=== PATIENT | male | born 1945 | race Caucasian/White ===

== ENCOUNTER → 2018-04-20 | Outpatient (CLI) | payer MEDICARE ==
--- NOTE | 2018-04-21 17:32 | CARDNUC ---
[place] [address] CARDIAC NUCLEAR IMAGING REPORT Name: TELLOGRISELDATALISHA PARADA Room: [facility]#: [id number] Admission: 04/20/18 Attend Phys: Kleber Deluna, Discharge: Date of : 45 Date of Service: 04/21/18 1732 Report #: [id number] THIS REPORT FOR: //name// APPROVED REPORT Imaging Protocol: Rest Tc-99m/Stress Tc-99m 1 day Study performed: 04/20/2018 07:15:00 Indication: Chest pain Patient Location: Out-Patient Stress Tech: Kia Avendaño Stress Nurse: Yvonne Sevilla RN NM Tech:FLOYD Voss Ht: 5 ft 4 in Wt: 156 lbs BSA: 1.76 m2 BMI: 26.77 Medical History Medical History: HTN, Hyperlipidemia Medications: amlodipine, asa 81, lisinopril, simvastatin, ntg Allergies: No known drug allergies Cardiac Risk Factors: age, hyperlipidemia, hypertension, family hx Previous Cardiac Procedures: none Exercise History: Physically active Resting Data Rest SPECT myocardial perfusion imaging was performed in supine position 30 minutes following the intravenous injection of 10.8 mCi of Tc-99m Sestamibi. Time of rest injection: 739 Date: 04/20/2018 The images were gated to evaluate regional wall motion and calculate left ventricular ejection fraction. Administration Route: IV Administration Site: Right AC Exercise Stress At peak stress, the patient was injected intravenously with 36.0mCi of Tc-99m Sestamibi. Time of stress injection: 909 Administration Route: IV Administration Site: Right AC Gated Stress SPECT was performed 40 [place] [address] CARDIAC NUCLEAR IMAGING REPORT Name: GRISELDA JAVED TAL Room: [facility]#: [id number] Admission: 04/20/18 Attend Phys: Kleber Deluna, Discharge: Date of : 45 Date of Service: 04/21/18 1732 Report #: [id number] The images were gated to evaluate regional wall motion and calculate left ventricular ejection fraction. Prone imaging was performed. Stress Test Details Stress Test: Exercise stress testing was performed using a Ezekiel protocol. HR Max Heart Rate (APMHR): 148 bpm Resting HR: 70 bpm Target HR (85% APMHR): 125 bpm Max HR Achieved: 138 bpm % of APMHR: 93 Recovery HR: 89 bpm BP Resting BP: 145/72 mmHg Max BP: 187/79 mmHg Recovery BP: 178/78 mmHg ECG Resting ECG: Sinus Rhythm Stress ECG: Sinus Tachycardia ST Change: None Arrhythmia: None Recovery ECG: Sinus Rhythm Recovery ST Change: None Recovery Arrhythmia: None Clinical Reason for Termination: Fatigue Patient exhibited limited exercise capacity. He did not have any typical cardiac symptoms with standard Ezekiel protocol exercise. Nurse Comments pt was unable to keep up with treadmill at end Stress ECG Conclusion The baseline 12-lead EKG show sinus rhythm without ST or T wave abnormality. His obtained during and post exercise showed sinus rhythm and sinus tachycardia with no significant ST or T wave changes when compared to baseline. There were no stress-induced arrhythmias. Study Quality Study: Good Artifact: [place] [address] CARDIAC NUCLEAR IMAGING REPORT Name: GRISELDA JAVED Room: [facility]#: [id number] Admission: 04/20/18 Attend Phys: Kleber Deluna, Discharge: Date of : 45 Date of Service: 04/21/18 1732 Report #: [id number] Study Data At rest, the left ventricular ejection fraction was 72%.. Post stress, the left ventricular ejection was 73%.. TID = 1.02. Perfusion Myocardial perfusion images obtained in the supine position at rest and post exercise stress show photopenia in the inferior wall that resolves completely with post stress prone imaging suggesting diaphragmatic attenuation artifact. No other significant fixed or reversible defects were identified. Wall Motion Normal left ventricular wall motion. Nuclear Conclusion ECG Findings: negative for ischemia Clinical Findings: negative for ischemia Nuclear Findings: negative for ischemia Exercise Capacity: limited Left Ventricular Function: normal Risk Study: low Myocardial perfusion images show no defect to suggest infarct or ischemia. Left ventricular systolic function appears normal on gated studies. This is a low risk study. <Conclusion> The baseline 12-lead EKG show sinus rhythm without ST or T wave abnormality. His obtained during and post exercise showed sinus rhythm and sinus tachycardia with no significant ST or T wave changes when compared to baseline. There were no stress-induced arrhythmias. <ELECTRONICALLY SIGNED> By: Ryan Palmer MD, [facility] 04/21/18 1732 [id number] Ryan Palmer MD, FACC /INF
== END ==
LOC: M.NUC 04-10 13:04
DX: R07.2 Precordial pain (principal); R05 Cough; I10 Essential (primary) hypertension; E78.5 Hyperlipidemia, unspecified; Z98.890 Other specified postprocedural states

== ENCOUNTER 2018-06-14 10:21 | Observation (INO) | payer MEDICARE ==
[~2018-06-14] VITALS: Ht 165.1 cm; Wt 69.4 kg
--- NOTE | ~2018-06-14 | D ---
[address] [address] DISCHARGE SUMMARY Name: GRISELDA JAVED Room: [address] Dieudonne Winkler#: [id number] Admission: 06/14/18 Attend Phys: Kleber Deluna MD Discharge: 06/15/18 Date of : 45 Report #: [id number] THIS REPORT FOR: //name// CC: Scott Guevara DATE OF SERVICE: 06/15/2018 FINAL DIAGNOSES: 1. Unstable angina. 2. Status post percutaneous coronary intervention to the ostium of his right coronary artery and mid right coronary artery, 70 and 95% stenoses respectively. 3. Normal left ventricular function. 4. Hyperlipidemia. HOSPITAL SUMMARY: The patient had been having unstable angina and was arranged for an outpatient cardiac catheterization, which revealed a 60-70% highly calcified ostial right coronary artery stenosis and a 95% mid body RCA stenosis, which is a dominant vessel. He had moderate disease in his left system and normal LV function. His vessels were highly calcified and his right coronary intervention was complex and required several balloon dilations to open up his mid right coronary artery and ultimately required stenting of his ostial right coronary artery. His troponin post-procedural was 15, creatinine was normal. CBC was normal. The residual stenosis in the mid right coronary artery is in the 10-20% range. There was 0% residual stenosis in the ostium of the right coronary artery. DISCHARGE MEDICATIONS: Will include aspirin, Brilinta, atorvastatin 40 mg daily and his other home medications will remain unchanged. FOLLOWUP: Will be with nurse practitioner in 2-3 weeks. By: [id number] Deluna MD, FACC /nt
[~2018-06-14 10:21] MED LIST: ASPIR 8181 MG PO; COZAAR 25 MG TA25 M1 PO; FINASTERIDE5 MG PO; FLOMAX0.4 MG PO; FLONASE 0.05%50 MCG NASAL; IMDUR 30 MG TAB30 M1 PO; LIORESAL 10 MG10 MG PO; NORVASC5 MG PO; OMEPRAZOLE40 MG PO; SENNA8.6 MG PO; SIMVASTATIN40 MG PO; THERA-M1 EAC1 PO; TRAMADOL 50 MG50 MG PO; TYLENOL EXTRA500 MG PO; VITAMIN D1000 UNI1 PO; VITAMINC500 PO; ZYRTEC10 M5 PO
[2018-06-14 11:27] VITALS: BP 117/75
[2018-06-14 11:32] LABS: HEMATOCRIT 39.2 % (42.0-52.0); HEMOGLOBIN 13.4 gm/dL (14.0-18.0); MCH 29.6 pg (26.0-34.0); MCHC 34.2 g/dL (28.0-37.0); MCV 86.8 fL (80.0-100.0); MPV 7.2 fl. (7.2-11.1); RBC 4.51 mil/uL (4.50-6.00); RDW-CV 14.7 % (10.5-14.5); WBC 3.9 thou/uL (4.0-11.0)
[2018-06-14 11:38] LABS: APTT 25.2 Seconds (25.0-31.3); PROTIME 10.1 Seconds (9.20-11.50)
[2018-06-14 11:42] LABS: ANION GAP 11 mmol/L (7-16); BUN 8 mg/dL (7-18); CHLORIDE 101 mmol/L (98-107); CHOLESTEROL 175 mg/dL (<200); CO2 26 mmol/L (21-32); CREATININE 0.8 mg/dL (0.6-1.3); GLUCOSE 101 mg/dL (70-99); HDL CHOLESTEROL 55 mg/dL (>40); LDL CHOLESTEROL 102 mg/dL (<100); POTASSIUM 3.6 mmol/L (3.5-5.1); SERUM ASSESSMENT Clear; SODIUM 138 mmol/L (136-145); TC:HDL 3.2 Ratio (Not establshd); TRIGLYCERIDE 94 mg/dL (<150); VLDL 19 mg/dL (<40)
[2018-06-14 16:00] VITALS: BP 151/76
[2018-06-14 16:17] VITALS: BP 151/76
[2018-06-14 17:39] VITALS: BP 151/76
--- NOTE | 2018-06-14 18:40 | NUR ---
PT ADMITED FROM VEHICLE SAFETY INSPECTOR. R GROIN SITE C/D/I. R RADIAL SITE BRUISED. PT LEGALLY BLIND SINCE . TO KEEP HOB ELEVATED LESS THAN 30% UNTIL 2200. PT REFUSED SCD'S.
[2018-06-15 04:40] LABS: HEMATOCRIT 39.4 % (42.0-52.0); HEMOGLOBIN 13.5 gm/dL (14.0-18.0); MCH 29.5 pg (26.0-34.0); MCHC 34.2 g/dL (28.0-37.0); MCV 86.3 fL (80.0-100.0); MPV 7.2 fl. (7.2-11.1); RBC 4.57 mil/uL (4.50-6.00); RDW-CV 14.4 % (10.5-14.5); WBC 6.5 thou/uL (4.0-11.0)
[2018-06-15 04:59] LABS: ALBUMIN 3.6 g/dL (3.4-5.0); CALCIUM 8.6 mg/dL (8.5-10.1); CREATININE 0.7 mg/dL (0.6-1.3); POTASSIUM 3.2 mmol/L (3.5-5.1); TOTAL BILIRUBIN 0.5 mg/dL (<0.1-1.0); TOTAL PROTEIN 6.7 g/dL (6.4-8.2)
[2018-06-15 05:02] LABS: TROPONIN-I LEVEL 15.13 ng/mL (<0.06)
--- NOTE | 2018-06-15 06:42 | NUR ---
VITALS STABLE, AFEBRILE THROUGH THE NIGHT. PATIENT DENIES CHEST PAIN, N/V, SWEATING. NSR ON THE MONITOR, VERY BRIEF VTACH ONCE AT 0313, STRIP PRINTED AND IN CHART. RIGHT GROIN SITE INTACT, NO HEMATOMA, DISCOLORATION, OR WARMTH. NO ACTIVE BLEEDING TO RIGHT RADIAL SITE, DRY BLOOD ON DRESSING, DENIES PAIN. NO BM, ABLE TO USE URINAL WITH GOOD UOP. FIRST DOSE OF POTASSIUM GIVEN PER ELECTROLYTE REPLACEMENT THERAPY THIS AM. Q2 TURNS FOR SKIN INTEGRITY, PATIENT OFF BED REST AT 2200. CALL LIGHT WITHIN REACH.
[2018-06-15 07:00] VITALS: BP 160/76
[2018-06-15 07:30] VITALS: BP 159/83
[2018-06-15 08:00] VITALS: BP 169/78
[2018-06-15 08:30] VITALS: BP 160/76
[2018-06-15 09:30] VITALS: BP 153/82
[2018-06-15] MEDS ORDERED: BRILINTA90 MG PO (10:11)
[2018-06-15] MEDS ORDERED: NITROGLYCERIN0.4 MG SUBLING (10:16)
[2018-06-15] MEDS ORDERED: ATORVASTATIN CA40 MG PO (10:22)
[2018-06-15 10:27] LABS: URINE BILIRUBIN NEGATIVE (Negative); URINE BLOOD TRACE (Negative); URINE CLARITY CLEAR; URINE COLOR YELLOW; URINE GLUCOSE-RANDOM NEGATIVE (Negative); URINE KETONES 1+ (Negative); URINE LEUKOCYTES-REFLEX NEGATIVE (Negative); URINE NITRITE-REFLEX NEGATIVE (Negative); URINE PROTEIN NEGATIVE (Negative); URINE SPECIFIC GRAVITY <= 1.005 (1.005-1.030); URINE UROBILINOGEN 0.2 E.U./dl (0.2-1.0)
[2018-06-15 12:12] VITALS: BP 151/76
--- NOTE | 2018-06-15 13:08 | NUR ---
PATIENT SEEN BY CRIMINAL INVESTIGATOR AND BIN FILLER. CLEARED FOR DISCHAGRE. CARDIAC REHAB SAW PATIENT YESTERDAY AND ARRANGED OUTPATIENT CARDIAC REHAB AT [place], [place]. PATIENT ONLY COMPLAIN THIS MORNING WAS URINARY PRESSURE. PATIENT RESTARTED ON PROSTATE MEDICATIONS THIS AM. UA CHECKED, BUT CLEAR. PATIENT ABLE TO VOID, BUT STILL WITH SOME STRESS INCONTINENCE. ABLE TO ADEQUAELY EMPTY BLADDER. PATIENT GIVEN BRIEFS FOR HOME IF NEEDED. DETAILED MEDICATION EDUCATION GIVEN BY CARDIOLOGY CRIMINAL INVESTIGATOR, CARDIOLOGY NURSE, AND THEN THIS NURSE. PATIENT VOICED UNDERSTANDING OF EDUATION AND WAS ABLE TO REPEAT BACK ADEQUATELY. AWARE OF FOLLOW UP CARDIOLOGY APPOINTMENT ON June. PATIENT FRIEND PICKED HIM UP AT 1308. TAKEN OUT BY CHRISTAL CORREIA IN WHEELCHAIR TO FRIEND'S PRIVATE VEHICLE. ALL BELONGINGS TAKEN WITH PATIENT.
--- NOTE | 2018-06-15 16:33 | EKG ---
[place] [address] ELECTROCARDIOGRAM REPORT Name: TELLOGRISELDA TAL Room: [address] M.R.#: [id number] Admission: 06/14/18 Attend Phys: Kleber Deluna MD Discharge: 06/15/18 Date of : 45 Report #: [id number] THIS REPORT FOR: //name// [facility] Test Date: 2018-06-14 Test Time: 11:31:58 Pat Name: GRISELDA JAVED Department: Room: [facility] Gender: M Layout Operator: : 1945 Requested By: Kleber Deluna Order Number: [id number] Reading MD: Kleber Deluna Measurements Intervals [place] Rate: 57 P: 14 [place]: 155 QRS: 36 QRSD: 93 T: 25 QT: 396 QTc: 386 Interpretive Statements Sinus rhythm Abnormal R-wave progression, early transition Baseline wander in lead(s) II,III,aVF No previous ECG available for comparison Electronically Signed On 06-15-2018 16:33:49 CDT by Kleber Deluna [email or web address] <ELECTRONICALLY SIGNED> By: Kleber Deluna MD, [facility] 06/15/18 1633 1131 1131 Kleber Deluna MD, [facility] /EPI
--- NOTE | 2018-06-15 16:34 | EKG ---
[place] [address] ELECTROCARDIOGRAM REPORT Name: GRISELDA JAVED Room: [address]R.#: [id number] Admission: 06/14/18 Attend Phys: Kleber Deluna MD Discharge: 06/15/18 Date of : 45 Report #: [id number] THIS REPORT FOR: //name// [facility] Test Date: 2018-06-14 Test Time: 16:38:40 Pat Name: GRISELDA JAVED Department: Room: [facility] Gender: M Hydrator: JVIOLET : 1945 Requested By: Scott Don Order Number: [id number] Valorie MD: Kelber Deluna Measurements Intervals [place] Rate: 59 P: 24 [place]: 151 QRS: 52 QRSD: 90 T: 64 QT: 413 QTc: 410 Interpretive Statements Sinus rhythm Inferior infarct, acute (LCx) Lateral leads are also involved No previous ECG available for comparison Electronically Signed On 06-15-2018 16:34:39 CDT by Kleber Deluna [email or web address] <ELECTRONICALLY SIGNED> By: Kleber Deluna MD, [facility] 06/15/18 1634 1638 1638 Kleber Deluna MD, [facility] /EPI
--- NOTE | 2018-06-15 16:37 | EKG ---
[place] [address] ELECTROCARDIOGRAM REPORT Name: TELLOGRISELDA TAL Room: [address]R.#: [id number] Admission: 06/14/18 Attend Phys: Kleber Deluna MD Discharge: 06/15/18 Date of : 45 Report #: [id number] THIS REPORT FOR: //name// [facility] Test Date: 2018-06-15 Test Time: 08:30:12 Pat Name: GRISELDA JAVED Department: Room: [facility] Gender: M Trust Manager Assistant: : 1945 Requested By: Scott Don Order Number: [id number] Reading MD: Kleber Deluna Measurements Intervals [place] Rate: 72 P: 50 MA: 146 QRS: 41 QRSD: 94 T: 70 QT: 366 QTc: 401 Interpretive Statements Sinus rhythm Abnormal R-wave progression, early transition ST elevation, consider inferior injury No previous ECG available for comparison Electronically Signed On 06-15-2018 16:36:47 CDT by Kleber Deluna [email or web address] <ELECTRONICALLY SIGNED> By: Kleber Deluna MD, [facility] 06/15/18 1636 Kleber Deluna MD, [facility] /EPI
--- NOTE | 2018-06-16 10:41 | CARD ---
[address] [address] CARDIAC CATH REPORT Name: GRISELDA JAVED Room: [address] Dieudonne Winkler#: [id number] Admission: 06/14/18 Attend Phys: Kleber Deluna MD Discharge: 06/15/18 Date of : 45 Report #: [id number] THIS REPORT FOR: //name// APPROVED REPORT Study performed: 06/14/2018 12:15:05 Patient Details The patient is a 72 year-old male Event Personnel Kleber Deluna Accounts Payable Technician, Radha Anne RN RN, Parminder Presley MANAGER OF EMPLOYEE RELATIONS Monitor, Adonis Hopkins MANAGER OF EMPLOYEE RELATIONS Scrub, Scott Don Geophysical Engineer, Nellie Mckeon RN brim stretcher Performed Left heart catheterization left ventriculography selective coronary artery on file and percutaneous coronary intervention to the proximal and mid right coronary artery with drug-eluting stents deployed at both sites Indication Unstable angina Risk Factors Hypercholesterolemia, Hypertension Admission/Lab Medications/Medications given during procedure Aspirin, Platelet Aff. Inhib., Angiomax bolus and infusion Procedure Narrative The patient was brought electively to the Cardiac Catheterization Laboratory and was prepped and draped in a sterile manner. The right femoral was infiltrated with 2% Lidocaine subcutaneous anesthesia. A 6fr Ultimum Sheath sheath was inserted into the right femoral artery. Coronary angiography was performed using coronary diagnostic catheters. The right coronary system was accessed and visualized with a JR4 6fr catheter. The left coronary system was accessed and visualized with a JL4 6fr catheter. The left ventricle was accessed and visualized with a PC: Pig 6fr angled catheter. Left ventricular/Aortic Valve gradient assessed via catheter pullback. Pre-demployment femoral angiogram was performed . Closure device was deployed with a Fr Angioseal STS 6Fr. The patient tolerated the procedure well and there were no complications associated with the procedure. There was no hematoma. [place] [address] CARDIAC CATH REPORT Name: GRISELDA JAVED Room: [address]#: [id number] Admission: 06/14/18 Attend Phys: Kleber Deluna MD Discharge: 06/15/18 Date of : 45 Report #: [id number] artery after unsuccessful access at the site Intraoperative Conscious Sedation Sedation start time: 1236 Case end Time: 1536 Fentanyl 100 mcg Versed 3 mg Fluoro Time: 65.9 minutes Dose: DAP 057139 cGycm2 5720 mGy Contrast Type and Amount: Omnipaque 600 ml Diagnostic Cath Left Main 0% narrowing LAD 40% mid vessel narrowing Circumflex 40% calcified proximal stenosis with 30% proximal first marginal narrowing Right Coronary Dominant vessel with 75% calcified ostial proximal stenosis and 90% heavily calcified mid vessel stenosis Left Ventriculography The left ventricle is normal in size with normal contractility. The left ventricular ejection fraction is estimated to be 65%. Left ventricular wall motion abnormalities are not present. There is no mitral insufficiency. IVUS Intravascular Ultrasound was performed on the mid right coronary artery vessel. A Guide Catheter was used to engage the 6F H-STK ostium. A IG: ProwaterFlex 180CM was used. IVUS Findings Mini Trek RX 1.2X8 Hemodynamics The aortic pressure is 143/57 mmHg with a mean of 46 mmHg. The left ventricular pressure is 134/4 mmHg with a mean of mmHg. The left ventricular end diastolic pressure is 16 mmHg. There was no gradient across the aortic valve upon pullback. PCI Technique Lesion Anticoagulation was achieved with Angiomax. Patient was preloaded with Angiomax IV 10.5 ml. Percutaneous coronary intervention was performed on the mid right coronary artery. The lesion stenosis prior to intervention was 90% with LAMIN 3 flow. A 6F IM 100CM Guide Catheter was used to engage the ostium. A IG: ProwaterFlex 180CM Interventional Guidewire was [place] [address] CARDIAC CATH REPORT Name: TELLOGRISELDATALISHA PARADA Room: [address] Dieudonne M.RRaghu#: [id number] Admission: 06/14/18 Attend Phys: Kleber Deluna MD Discharge: 06/15/18 Date of : 45 Report #: [id number] BALLOON DILATION A Balloon catheter Mini Trek RX 1.2X8,2.0x8,2.5x8 was inserted and inflated up to 16atm for 15seconds. STENT DEPLOYMENT A drug-eluting stent Ashby RX Stent 2.66T91re was inserted and inflated up to 18atm for 15seconds. POST STENT DEPLOYMENT BALLOON DILATION A Balloon catheter NC Trek RX 2.5 X 12 was inserted and inflated up to 18atm for 15seconds. Final angiography reveals 15 % stenosis with LAMIN 3 flow. COMMENTS Procedure was complex by virtue of the marked calcification of the mid right coronary artery requiring difficult wiring and sequential dilatations with 1.2 x 8,2.0 x 8 and 2.5 x 8 angioplasty balloons prior to deployment of a drug-eluting stent at the mid right coronary site PCI Technique Lesion Percutaneous coronary intervention was performed on the mid right coronary artery. A 6F H-STK Guide Catheter was used to engage the ostium. A IG: ProwaterFlex 180CM Interventional Guidewire was used to cross the lesion. BALLOON DILATION A Balloon catheter Mini Trek RX 1.2X8 was inserted and inflated up to 18.00atm for 15seconds. Additional Inflation: 20.00atm for 10seconds. Additional Inflation: 22.00atm for 11seconds. PCI Technique Lesion 2 Percutaneous Coronary Intervention was performed on the mid right coronary artery. A 6F H-STK Guide Catheter was used to engage the ostium. A IG: ProwaterFlex 180CM Interventional Guidewire was used to cross the lesion. Balloon Dilation A Balloon catheter Mini Trek RX 2.0 X 8 was inserted and inflated up to 12atm for 12seconds. Additional Inflation: 16atm for 9seconds. Additional Inflation: 20atm for 16seconds. Stent Deployment [address] [address] CARDIAC CATH REPORT Name: GRISELDA JAVED Room: [address]RRaghu#: [id number] Admission: 06/14/18 Attend Phys: Kleber Deluna MD Discharge: 06/15/18 Date of : 45 Report #: [id number] A 0 stent was inserted and inflated up to giovanny for seconds. PCI Technique Lesion Percutaneous coronary intervention was performed on the mid right coronary artery. A 6F H-STK Guide Catheter was used to engage the ostium. A IG: ProwaterFlex 180CM Interventional Guidewire was used to cross the lesion. BALLOON DILATION A Balloon catheter Trek RX 2.5 X 8 was inserted and inflated up to 18.00atm for 15seconds. Additional Inflation: 18.00atm for 14seconds. Additional Inflation: 18.00atm for 11seconds. STENT DEPLOYMENT A stent Ashby RX Stent 2.28W11zp was inserted and inflated up to 18.00atm for 11seconds. Additional Inflation: 22.00atm for 12seconds. POST STENT DEPLOYMENT BALLOON DILATION A Balloon catheter NC Trek RX 2.5 X 12 was inserted and inflated up to 16.00atm for 12seconds. Additional Inflation: 17.00atm for 10seconds. COMMENTS bmw 190 mariella wire inserted PCI Technique Lesion 3 Percutaneous Coronary Intervention was performed on the proximal right coronary artery. The lesion stenosis prior to intervention was 75% with LAMIN 3 flow. A 6F JR 4.0 Guide Catheter was used to engage the ostium. A IG: BMW 190cm Interventional Guidewire was used to cross the lesion. Balloon Dilation A Balloon catheter NC Trek RX 3.0 X 8 was inserted and inflated up to 18atm for 16seconds. Additional Inflation: 22atm for 11seconds. Stent Deployment A stent Baron RX Stent 3.0X8mm was inserted and inflated up to 18atm for 15seconds. Additional Inflation: 18atm for 11seconds. Final angiography reveals 0 % stenosis with LAMIN 3 [place] [address] CARDIAC CATH REPORT Name: GRISELDA JAVED Room: [address] Dieudonne Winkler#: [id number] Admission: 06/14/18 Attend Phys: Kleber Deluna MD Discharge: 06/15/18 Date of : 45 Report #: [id number] #1 significant coronary artery disease characterized by the following: A 75% calcified ostial proximal with 90% heavily calcified mid right coronary stenosis, this being a dominant vessel B 40% mid LAD narrowing C 40% calcified proximal circumflex stenosis with 30% proximal first marginal narrowing #2 normal left ventricular systolic function, estimate ejection fraction being 65% #3 mild elevation of left ventricular end-diastolic pressure at rest #4 successful percutaneous coronary intervention with deployment of drug-eluting stents at the sites of 75% calcified ostial proximal right coronary stenosis and 90% heavily calcified mid right coronary stenosis with 0 and 10% residual narrowings and LAMIN-3 flow to the distal vessel Recommendations Cardiac Risk Reduction Program Aggressive Medical Therapy Medications Administered Aspirin (any) Ticagrelor Diagnostic Cath Approved by: Kleber Deluna MD Date/Time: 06/16/2018 10:40:28 <ELECTRONICALLY SIGNED> By: Scott Don MD, [facility] 06/16/18 1041 40 40Scott Don MD, FACC /INF
== END 2018-06-15 13:08 | disposition home or self-care (01) ==
LOC: M.CL 10:21 → M.ICU 14:56 → M.TBA-ER 14:56 → M.TBA-CV 14:56 → M.ICU 17:06
PROVIDERS: Internal Medicine; ADMIT Internal Medicine Cardiovascular Disease
DX: I20.0 Unstable angina (principal); I10 Essential (primary) hypertension; E78.5 Hyperlipidemia, unspecified; I50.1 Left ventricular failure, unspecified; E78.00 Pure hypercholesterolemia, unspecified

== ENCOUNTER → 2018-12-11 | Outpatient (CLI) | payer MEDICARE ==
[~2018-12-11] MED LIST changes: +ATORVASTATIN CA40 MG PO; +BRILINTA90 MG PO; +NITROGLYCERIN0.4 MG SUBLING
[2018-12-11 12:08] LABS: ABSOLUTE BASOPHILS 0.1 thou/uL (0.0-0.2); ABSOLUTE EOSINOPHILS 0.1 thou/uL (0.0-0.7); ABSOLUTE LYMPHOCYTES 1.2 thou/uL (0.8-5.3); ABSOLUTE MONOCYTES 0.7 thou/uL (0.0-1.2); ABSOLUTE NEUTROPHILS 2.9 thou/uL (1.6-8.1); BASOPHILS 1.1 %; EOSINOPHILS 2.5 %; HEMATOCRIT 37.6 % (42.0-52.0); HEMOGLOBIN 12.7 gm/dL (14.0-18.0); LYMPHOCYTES 24.3 %; MCH 28.1 pg (26.0-34.0); MCHC 33.7 g/dL (28.0-37.0); MCV 83.3 fL (80.0-100.0); MONOCYTES 14.6 %; MPV 6.6 fl. (7.2-11.1); NUCLEATED RBCS 0 /100WBC; PLATELET COUNT* 249 thou/uL (150-400); POLYS 57.5 %; RBC 4.52 mil/uL (4.50-6.00); RDW-CV 15.8 % (10.5-14.5)
== END ==
LOC: M.LAB 11:53
PROVIDERS: Nurse Practitioner
DX: K92.1 Melena (principal)

== ENCOUNTER → 2019-06-13 | Outpatient (CLI) | payer MEDICARE ==
--- NOTE | 2019-06-13 13:03 | CARDNUC ---
[place] [address] CARDIAC NUCLEAR IMAGING REPORT Name: GRISELDA JAVED Room: [facility]#: [id number] Admission: 06/13/19 Attend Phys: Malu Jeffries, Discharge: Date of : 45 Date of Service: 06/13/19 1301 Report #: [id number] THIS REPORT FOR: cc: Mana Lee Melanie A. FNP Liston, Michael J. MD [facility] ~ APPROVED REPORT Imaging Protocol: Rest Tc-99m/Stress Tc-99m 1 day Study performed: 06/13/2019 09:15:00 Indication: Chest pain Patient Location: Out-Patient Stress Tech: Nan Chandra Stress Nurse: Yvonne Sevilla RN NM Tech:FLOYD Voss Ht: 5 ft 4 in Wt: 150 lbs BSA: 1.73 m2 BMI: 25.74 Medical History Medical History: Hyperlipidemia, HTN, CAD non obstructive Medications: amlodipine, asa-81, atorvastatin, imdur, losartan, ntg, brilinta Allergies: No known drug allergies Cardiac Risk Factors: age, hyperlipidemia, hypertension Previous Cardiac Procedures: PCI Exercise History: Physically active Resting Data Rest SPECT myocardial perfusion imaging was performed in supine position 30 minutes following the intravenous injection of 10.8 mCi of Tc-99m Sestamibi. Time of rest injection: 0935 Date: 06/13/2019 The images were gated to evaluate regional wall motion and calculate left ventricular ejection fraction. Administration Route: IV Administration Site: Right Hand Pharmacologic Stress Pharmacologic stress test was performed by injecting Regadenoson 0.4 mg IV push over 10-15 seconds immediately followed by the intravenous injection of 35.0 mCi of Tc-99m [place] [address] CARDIAC NUCLEAR IMAGING REPORT Name: GRISELDA JAVED Room: [facility] Winlker#: [id number] Admission: 06/13/19 Attend Phys: Malu Jeffries, Discharge: Date of : 45 Date of Service: 06/13/19 1301 Report #: [id number] Time of stress injection: 1055 Date: 06/13/2019 Administration Route: IV Administration Site: Right Hand Gated Stress SPECT was performed 40 minutes after stress injection. The images were gated to evaluate regional wall motion and calculate left ventricular ejection fraction. Prone imaging was performed. Stress Test Details Stress Test: Pharmacologic stress testing performed using 0.4 mg of regadenoson per 5 mL given IV over 10 seconds. Reason for pharmacologic stress test: physical limitation. HR Max Heart Rate (APMHR): 147 bpm Resting HR: 61 bpm Target HR (85% APMHR): 124 bpm Max HR Achieved: 92 bpm % of APMHR: 62 Recovery HR: 81 bpm BP Resting BP: 126/66 mmHg Max BP: 152/66 mmHg Recovery BP: 150/74 mmHg ECG Resting ECG: Sinus Rhythm Stress ECG: Sinus Rhythm ST Change: None Arrhythmia: None Recovery ECG: Sinus Rhythm Recovery ST Change: None Recovery Arrhythmia: None Clinical Reason for Termination: Completed protocol No symptoms with lexiscan stress. Nurse Comments pt has bad left hip and is unsable to walk on treadmill Stress ECG Conclusion EKG normal at baseline and with Lexiscan stress. Study Quality Study: Good Artifact: [place] [address] CARDIAC NUCLEAR IMAGING REPORT Name: TELLOGRISELDATALISHA PARADA Room: [facility]#: [id number] Admission: 06/13/19 Attend Phys: Malu Jeffries, Discharge: Date of : 45 Date of Service: 06/13/19 1301 Report #: [id number] Study Data At rest, the left ventricular ejection fraction was 68%.. Post stress, the left ventricular ejection was 72%.. TID = 0.97. Perfusion Photopenia of the inferior wall on supine rest and stress images that resolves with prone imaging consistent with diaphragmatic attenuation artifact. Post stress prone imaging shows uniform uptake of radioisotope. Wall Motion Normal left ventricular wall motion. Nuclear Conclusion ECG Findings: negative for ischemia Clinical Findings: negative for ischemia Nuclear Findings: negative for ischemia Exercise Capacity: not assessed Left Ventricular Function: normal Risk Study: low This is a low risk study. <Conclusion> EKG normal at baseline and with Lexiscan stress. <ELECTRONICALLY SIGNED> By: Ryan Palmer MD, FACC 06/13/19 1301 1301 1301 Ryan Palmer MD, FACC /INF
== END ==
LOC: M.NUC 12-12 09:48 → M.CRD 09:00 → M.NUC 09:14
DX: I25.10 Atherosclerotic heart disease of native coronary artery without angina pectoris (principal)